=== PATIENT | male | born 1965 | race Caucasian/White ===

== ENCOUNTER 2018-05-21 15:02 | Inpatient (IN) | payer OTHER ==
[2018-05-21 15:54] LABS: Basophils # (A) 0.1 k/uL (0-0.2); Basophils % (A) 1 %; Eosinophils # (A) 0.2 k/uL (0-0.7); Eosinophils % (A) 3 %; HCT 44.6 % (39.0-53.0); HGB 14.6 gm/dL (13.0-17.5); Lymphocytes # (A) 2.2 k/uL (1.0-4.8); Lymphocytes % (A) 26 %; MCH 30.6 pg (25.0-35.0); MCHC 32.8 g/dL (31.0-37.0); MCV 93.3 fL (80.0-100.0); Mean Platelet Volume 7.4; Monocytes # (A) 0.5 k/uL (0-1.0); Monocytes % (A) 5 %; Neutrophils # (A) 5.5 k/uL (1.3-7.7); Neutrophils % (A) 64 %; Platelet Count 272 k/uL (150-450); RBC 4.77 m/uL (4.30-5.90); RDW 13.7 % (11.5-15.5); WBC 8.7 k/uL (3.8-10.6)
[2018-05-21 16:02] LABS: Partial Thromboplastin Time 25.9 sec (22.0-30.0); Prothrombin Time 10.1 sec (9.0-12.0)
[2018-05-21 16:08] LABS: Albumin 3.9 g/dL (3.5-5.0); Calcium 9.1 mg/dL (8.4-10.2); Potassium 4.5 mmol/L (3.5-5.1); Total Bilirubin 0.7 mg/dL (0.2-1.3); Total Protein 6.5 g/dL (6.3-8.2)
[2018-05-21 16:20] LABS: Creatine Kinase MB 3.7 ng/mL (0.0-2.4)
[2018-05-21 16:29] LABS: Troponin I 0.066 ng/mL (0.000-0.034)
--- NOTE | 2018-05-21 17:32 | ED ---
General Adult HPI - General Chief complaint: Shortness of Breath Stated complaint: Dyspnea Time Seen by Provider: 05/21/18 16:48 Source: patient, RN notes reviewed Mode of arrival: ambulatory Limitations: no limitations - History of Present Illness Initial comments: Patient is a pleasant 52-year-old male presenting to the emergency Department with complaints of dyspnea. Patient has had dyspnea for several months now. Patient states dyspnea does worsen with exertion. Patient is unclear if dyspnea increased swelling down. Patient states last couple of days he has had some very mild chest discomfort. No discomfort at this time. Patient did have some this morning. Patient did go to the clinic at work and was advised to come to the emergency department. Patient does have known history of irregular EKG. No other history of known cardiac disease. No associated nausea vomiting or diaphoresis. No radiation of discomfort. - Related Data Home Medications Medication Instructions Recorded Confirmed Omeprazole Magnesium [PriLOSEC OTC] 20 mg PO DAILY 05/21/18 05/21/18 Allergies Allergy/AdvReac Type Severity Reaction Status Date / Time No Known Allergies Allergy Verified 05/21/18 18:23 Review of Systems ROS Statement: Those systems with pertinent positive or pertinent negative responses have been documented in the HPI. ROS Other: All systems not noted in ROS Statement are negative. Constitutional: Denies: fever Eyes: Denies: eye pain ENT: Denies: ear pain Respiratory: Reports: dyspnea. Denies: cough Cardiovascular: Reports: chest pain Endocrine: Denies: fatigue Gastrointestinal: Denies: abdominal pain Genitourinary: Denies: dysuria Musculoskeletal: Denies: back pain Skin: Denies: rash Neurological: Denies: weakness Past Medical History Past Medical History: No Reported History History of Any Multi-Drug Resistant Organisms: None Reported Past Surgical History: No Surgical Hx Reported Past Psychological History: No Psychological Hx Reported Smoking Status: Never smoker Past Alcohol Use History: Occasional Past Drug Use History: None Reported General Exam Limitations: no limitations General appearance: alert, in no apparent distress Head exam: Present: atraumatic Eye exam: Present: normal appearance, PERRL ENT exam: Present: normal oropharynx Neck exam: Present: normal inspection Respiratory exam: Present: normal lung sounds bilaterally Cardiovascular Exam: Present: irregular rhythm Expanded Peripheral pulses: 2+: Radial (R), Radial (L), Posterior Tibialis (R), Posterior Tibialis (L) GI/Abdominal exam: Present: soft. Absent: tenderness Extremities exam: Present: normal inspection. Absent: pedal edema, calf tenderness Neurological exam: Present: alert Psychiatric exam: Present: normal affect, normal mood Skin exam: Present: normal color Course Vital Signs 05/21/18 05/21/18 15:04 17:33 Temperature 98.0 F Pulse Rate 48 L 71 Respiratory 20 18 Rate Blood Pressure 148/84 131/66 O2 Sat by Pulse 98 98 Oximetry EKG Findings - EKG Comments: EKG Findings:: Bigeminy pattern: Sinus rhythm with frequent PVCs with a rate of 78. HI 152. QRS 96. QT 416. QTc 474. Normal axis. Normal QRS. No acute ST change. Medical Decision Making - Medical Decision Making Patient was updated on results and plan. Dr. Amado has been paged for admission. - Lab Data Result diagrams: 05/21/18 15:41 05/21/18 15:41 Lab Results 05/21/18 05/21/18 05/21/18 Range/Units 15:41 15:41 15:41 WBC 8.7 (3.8-10.6) k/uL RBC 4.77 (4.30-5.90) m/uL Hgb 14.6 (13.0-17.5) gm/dL Hct 44.6 (39.0-53.0) % MCV 93.3 (80.0-100.0) fL MCH 30.6 (25.0-35.0) pg MCHC 32.8 (31.0-37.0) g/dL RDW 13.7 (11.5-15.5) % Plt Count 272 (150-450) k/uL Neutrophils % 64 % Lymphocytes % 26 % Monocytes % 5 % Eosinophils % 3 % Basophils % 1 % Neutrophils # 5.5 (1.3-7.7) k/uL Lymphocytes # 2.2 (1.0-4.8) k/uL Monocytes # 0.5 (0-1.0) k/uL Eosinophils # 0.2 (0-0.7) k/uL Basophils # 0.1 (0-0.2) k/uL PT (9.0-12.0) sec INR (<1.2) APTT (22.0-30.0) sec Sodium 139 (137-145) mmol/L Potassium 4.5 (3.5-5.1) mmol/L Chloride 109 H (98-107) mmol/L Carbon Dioxide 21 L (22-30) mmol/L Anion Gap 9 mmol/L BUN 18 (9-20) mg/dL Creatinine 1.12 (0.66-1.25) mg/dL Est GFR (CKD-EPI)AfAm 87 (>60 ml/min/1.73 sqM) Est GFR (CKD-EPI)NonAf 75 (>60 ml/min/1.73 sqM) Glucose 132 H (74-99) mg/dL Calcium 9.1 (8.4-10.2) mg/dL Total Bilirubin 0.7 (0.2-1.3) mg/dL AST 29 (17-59) U/L ALT 31 (21-72) U/L Alkaline Phosphatase 64 (38-126) U/L Total Creatine Kinase 267 H (55-170) U/L CK-MB (CK-2) 3.7 H (0.0-2.4) ng/mL CK-MB (CK-2) Rel Index 1.4 Troponin I 0.066 H* (0.000-0.034) ng/mL Total Protein 6.5 (6.3-8.2) g/dL Albumin 3.9 (3.5-5.0) g/dL 05/21/18 Range/Units 15:41 WBC (3.8-10.6) k/uL RBC (4.30-5.90) m/uL Hgb (13.0-17.5) gm/dL Hct (39.0-53.0) % MCV (80.0-100.0) fL MCH (25.0-35.0) pg MCHC (31.0-37.0) g/dL RDW (11.5-15.5) % Plt Count (150-450) k/uL Neutrophils % % Lymphocytes % % Monocytes % % Eosinophils % % Basophils % % Neutrophils # (1.3-7.7) k/uL Lymphocytes # (1.0-4.8) k/uL Monocytes # (0-1.0) k/uL Eosinophils # (0-0.7) k/uL Basophils # (0-0.2) k/uL PT 10.1 (9.0-12.0) sec INR 1.0 (<1.2) APTT 25.9 (22.0-30.0) sec Sodium (137-145) mmol/L Potassium (3.5-5.1) mmol/L Chloride (98-107) mmol/L Carbon Dioxide (22-30) mmol/L Anion Gap mmol/L BUN (9-20) mg/dL Creatinine (0.66-1.25) mg/dL Est GFR (CKD-EPI)AfAm (>60 ml/min/1.73 sqM) Est GFR (CKD-EPI)NonAf (>60 ml/min/1.73 sqM) Glucose (74-99) mg/dL Calcium (8.4-10.2) mg/dL Total Bilirubin (0.2-1.3) mg/dL AST (17-59) U/L ALT (21-72) U/L Alkaline Phosphatase (38-126) U/L Total Creatine Kinase (55-170) U/L CK-MB (CK-2) (0.0-2.4) ng/mL CK-MB (CK-2) Rel Index Troponin I (0.000-0.034) ng/mL Total Protein (6.3-8.2) g/dL Albumin (3.5-5.0) g/dL - Radiology Data Radiology results: image reviewed Critical Care Time Critical Care Time: Yes Total Critical Care Time: 31 Disposition Clinical Impression: Unstable angina Disposition: ADMITTED IP TO THIS [facility] Is patient prescribed a controlled substance at d/c from ED?: No Referrals: Fausto Rhodes III, MD [Primary Care Provider] - 1-2 days Decision Time: 18:30
[2018-05-21] MEDS ORDERED: NITROGLYCERIN SL TABS 0.4 MG TAB SUBLINGUAL PRN (18:30)
[2018-05-21] MEDS ORDERED: HEPARIN SODIUM,PORCINE 5,000 UNIT/ML 1 ML VIAL IV PRN (18:30)
[2018-05-21] MEDS ORDERED: HEPARIN SODIUM,PORCINE 5,000 UNIT/ML 1 ML VIAL IV ONE (18:30)
[2018-05-21] MEDS: HEPARIN SOD,PORK IN 0.45% NACL 25,000 UNIT in 0.45% NACL 1 500ML.BAG IV SCH (19:04)
--- NOTE | 2018-05-21 19:06 | XR ---
EXAMINATION: XR chest 1V portable DATE AND TIME: 05/21/2018 6:17 PM CLINICAL INDICATION: pain TECHNIQUE: AP upright portable COMPARISON: None. FINDINGS: The lungs are clear. The pleural spaces are negative. The cardiac silhouette is not enlarged. The remainder of the mediastinal silhouette is unremarkable. The skeletal structures and soft tissues are negative for acute findings. IMPRESSION: NO ACUTE PROCESS.
[2018-05-21] MEDS ORDERED: IPRATROPIUM-ALBUTEROL 3 ML NEB INHALATION PRN (20:56)
[2018-05-21] MEDS ORDERED: ALPRAZolam 0.25 MG TAB PO PRN (20:57)
[2018-05-21] MEDS ORDERED: ACETAMINOPHEN TAB 500 MG TAB PO PRN (20:57)
[2018-05-21] MEDS ORDERED: TEMAZEPAM 15 MG CAP PO PRN (20:57)
[2018-05-21 21:45] LABS: Troponin I 0.08 ng/mL (0.000-0.034)
--- NOTE | 2018-05-21 22:03 | HP ---
HISTORY AND PHYSICAL DATE OF SERVICE: 05/21/2018 CHIEF COMPLAINT: Shortness of breath. HISTORY OF PRESENT ILLNESS: This is 52-year-old gentleman with a past medical history of no significant medical issues being followed by Dr. Rhodes in the outpatient setting, complaining of shortness of breath over the past several months. The shortness of breath is getting worse with exertion and the patient needs to slow down. Because of increasing difficulty, the patient came to [facility] and was admitted for further evaluation and treatment. The patient also complains of occasional mild chest discomfort which is felt in the anterior part of chest. There is no radiation. No history of headache, loss of consciousness or seizures. Troponin is found to be 0.066 and the patient admitted for further evaluation and treatment. Chest x-ray showed no acute abnormality. EKG showed bigeminy with PVCs. There is no history of fever, rigors or chills. PAST MEDICAL HISTORY: Past medical history, there is no significant cardiorespiratory illness. No medical illness. MEDICATIONS: Omeprazole. ALLERGIES: None. FAMILY HISTORY: History of heart disease in grandfather. SOCIAL HISTORY: Remote history of smoking. Smoked about 2 packs of cigarettes for 17 years previously according to him. Occasional alcohol intake. REVIEW OF SYSTEMS: ENT: No diminished hearing or vision. CARDIOVASCULAR: As mentioned earlier. RESPIRATORY: As mentioned earlier. GI: No nausea or vomiting. no dysuria or hematuria. Nervous system: No numbness or weakness. Allergy/Immunology: No asthma or hayfever. Musculoskeletal as mentioned earlier. Hematology/Oncology: No history of anemia. Endocrine: No history of diabetes or hypothyroidism. CONSTITUTIONAL: As mentioned earlier. DERMATOLOGY: Negative. Rheumatology: Negative. Psychiatric: Negative. PHYSICAL EXAMINATION: The patient is alert and oriented x3. The pulse is 71, blood pressure 131/66, respiration 18, temperature 98 degrees, pulse ox 98% on 2 L. HEENT is conjunctivae normal. Oral mucosa moist. Neck is no jugular venous distention. No carotid bruit. No lymph node enlargement. Cardiac: S1, S2. Respiratory: Breath sounds diminished in the bases. A few rhonchi. No crackles. ABDOMEN: Soft, nontender. No mass palpable. Legs no edema and no swelling. NERVOUS SYSTEM: Higher functions as mentioned earlier. Moves all four extremities. No focal motor or sensory deficits. Lymphatics: No lymph nodes palpable in the neck, axillae or groin. SKIN: No ulcers, rashes or bleeding. LAB DATA: CBC within normal limits and CO2 is 21, glucose 132, creatinine kinase 267. Troponin 0.066. ASSESSMENT: 1. Shortness of breath for evaluation, rule out anginal equivalent. 2. Troponin 0.066, rule out acute non ST segment elevation myocardial infarction. 3. Rule out chronic obstructive pulmonary disease acute exacerbation. 4. Increased creatinine kinase. 5. Increased random blood sugar. 6. Remote history of nicotine dependence. RECOMMENDATIONS AND DISCUSSION: In this 52-year-old gentleman who presented with multiple complex medical issues, we will monitor the patient closely. Continue the current medications, management and symptomatic treatment. Otherwise, I recommend empiric bronchodilators. Cardiology and pulmonology evaluation. 2D echo with Doppler. Repeat D-dimer, if it is positive, CT angiogram. Otherwise 2D echocardiogram. Repeat cardiac enzymes. Prognosis guarded because of multiple complex medical issues. Further recommendations to follow. A copy of dictation being forwarded to Dr. Rhodes who is the primary physician. MMODL / IJN: [id number] /
--- NOTE | 2018-05-21 22:34 | CT ---
EXAMINATION TYPE: CT chest angio for PE DATE OF EXAM: 05/21/2018 COMPARISON: None HISTORY: unstable angina CT DLP: 544 mGycm Automated exposure control for dose reduction was used. CONTRAST: CT Chest for pulmonary embolism performed with with IV Contrast, patient injected with 85mL mL of Iso ammon 370. FINDINGS: There are 3-D post processed images. There is minimal pulmonary emphysema. There is no evidence of a pulmonary mass. Lungs are clear of co nsolidation. There is minimal reticular density at the right posterior lung base. Heart size is normal. There is no pericardial effusion. There are a few paratracheal and bronchial ly mph nodes that measure up to 1 cm. Thoracic aorta shows normal size and contour. There is no evidence of aneurysm. There is no evidence of dissection. There is normal contrast opacification of the pulmonary arteries. There are no filling defects. The b marisol thorax appears intact. IMPRESSION: No evidence of pulmonary embolism. Minimal pulmonary emphysema.
[2018-05-21] MEDS: NITROGLYCERIN OINT 1 INCH/GM PACKET TOPICAL SCH (23:17)
[2018-05-21] MEDS: METOPROLOL TARTRATE 12.5 MG TAB PO SCH (23:17)
[2018-05-22 04:21] LABS: Basophils # (A) 0.1 k/uL (0-0.2); Basophils % (A) 1 %; Eosinophils # (A) 0.3 k/uL (0-0.7); Eosinophils % (A) 4 %; HCT 44.5 % (39.0-53.0); HGB 14.7 gm/dL (13.0-17.5); Lymphocytes # (A) 2.3 k/uL (1.0-4.8); Lymphocytes % (A) 30 %; MCH 30.3 pg (25.0-35.0); MCV 91.7 fL (80.0-100.0); Mean Platelet Volume 7.7; Monocytes # (A) 0.4 k/uL (0-1.0); Monocytes % (A) 6 %; Neutrophils # (A) 4.5 k/uL (1.3-7.7); Neutrophils % (A) 59 %; Platelet Count 245 k/uL (150-450); RBC 4.86 m/uL (4.30-5.90); RDW 13.4 % (11.5-15.5); WBC 7.7 k/uL (3.8-10.6)
[2018-05-22 04:30] LABS: Anion Gap 5 mmol/L; Blood Urea Nitrogen 17 mg/dL (9-20); Calcium 8.8 mg/dL (8.4-10.2); Carbon Dioxide 22 mmol/L (22-30); Chloride 108 mmol/L (98-107); Cholesterol 261 mg/dL (<200); Glucose 107 mg/dL (74-99); HDL Cholesterol 60 mg/dL (40-60); LDL Cholesterol,Calculated 170 mg/dL (0-99); Potassium 4.7 mmol/L (3.5-5.1); Sodium 135 mmol/L (137-145); Triglycerides 153 mg/dL (<150)
[2018-05-22 04:54] LABS: Creatine Kinase MB 2.6 ng/mL (0.0-2.4)
[2018-05-22 04:55] LABS: Troponin I 0.065 ng/mL (0.000-0.034)
[2018-05-22] MEDS: NITROGLYCERIN OINT 1 INCH/GM PACKET TOPICAL SCH ×3 (06:14→17:26)
[2018-05-22] MEDS: PANTOPRAZOLE 40 MG TABLET PO SCH (06:16)
--- NOTE | 2018-05-22 08:12 | P.CRDCN ---
History of Present Illness Consult date: 05/22/18 Requesting physician: Shaista Amado Consult reason: non-Q-wave [place] Chief complaint: Shortness of breath History of present illness: This is a pleasant 52-year-old gentleman with history of hypertension , untreated, hyperlipidemia untreated, no diabetes, nonsmoker, he thinks that his grandfather at an early age with a heart attack. Rarely drinks alcohol. For the past several weeks the patient has been experiencing symptoms of shortness of breath, according to the patient every morning when he wakes up he is very short of breath sometimes he wakes up at 2 or 3:00 in the morning and can hardly breathe. He does state that the symptoms worsen when he exerts himself. He denies any form of chest discomfort or discomfort in his upper back or arms. His EKG on arrival here showed a normal sinus rhythm with bigeminal PVCs, EKG performed this morning shows a normal sinus rhythm with frequent PVCs. No acute changes noted. Chest x-ray does not reveal any acute process. CTA of the chest was performed which did not reveal any evidence of a pulmonary embolism, mild emphysema. White blood cell count is normal, hemoglobin 14.7, platelet count 245, d-dimer 0.81. Sodium 135, potassium 4.7, BUN 17, creatinine 1.0. Troponins 0.06, 0.08, 0.06. Cholesterol 261, triglycerides 153, LDL 170, HDL 60. At the time of my examination this morning , patient still feels mildly short of breath. Denies any chest discomfort. Past Medical History Past Medical History: No Reported History History of Any Multi-Drug Resistant Organisms: None Reported Past Surgical History: No Surgical Hx Reported Past Psychological History: No Psychological Hx Reported Smoking Status: Former smoker Past Alcohol Use History: Occasional Past Drug Use History: None Reported Medications and Allergies Home Medications Medication Instructions Recorded Confirmed Type Omeprazole Magnesium [PriLOSEC OTC] 20 mg PO DAILY 05/21/18 05/21/18 History Allergies Allergy/AdvReac Type Severity Reaction Status Date / Time No Known Allergies Allergy Verified 05/21/18 18:23 Physical Exam Vitals: Vital Signs Temp Pulse Pulse Resp BP BP Pulse Ox 05/22/18 04:00 98.5 F 69 18 126/70 94 L 05/22/18 00:00 98.3 F 73 18 133/64 95 05/21/18 19:15 98.0 F 75 18 128/60 95 05/21/18 19:00 71 18 138/71 98 05/21/18 18:30 97 05/21/18 17:33 71 18 131/66 98 05/21/18 15:04 98.0 F 48 L 20 148/84 98 Intake and Output 05/21/18 05/22/18 05/22/18 22:59 06:59 14:59 Intake Total 192.57 Balance 192.57 Intake: Intake, IV Titration 192.57 Amount Heparin Sod,Pork in 0.45% 192.57 NaCl 25,000 unit In 0.45 % NaCl 1 500ml.bag @ 11.6 UNITS/KG/HR 19.99 mls/hr IV .Q24H [facility] Rx#: [id number] Other: # Voids 1 2 Weight 86 kg 84.3 kg PHYSICAL EXAMINATION: GENERAL: 52-year-old gentleman in no acute distress at the time of my examination HEENT: Head is atraumatic, normocephalic. Pupils equal, round. Sclera anicteric. Conjunctiva are clear. Mucous membranes of the mouth are moist. Neck is supple. There is elevated jugular venous pressure. no carotid bruit is heard. HEART EXAMINATION: [Elizalde S1, S2 normal. No murmur or gallop heard.] CHEST EXAMINATION:[ Lungs reveal coarse wheezing throughout ABDOMEN: Soft, nontender. Bowel sounds are heard. No organomegaly noted. EXTREMITIES: 2+ peripheral pulses with no evidence of peripheral edema and no calf tenderness noted. NEUROLOGIC patient is awake, alert and oriented X3. . Results 05/22/18 03:51 05/22/18 03:51 Cardiac Enzymes 05/21/18 05/21/18 05/21/18 Range/Units 15:41 15:41 20:55 AST 29 (17-59) U/L CK-MB (CK-2) 3.7 H 3.0 H (0.0-2.4) ng/mL Troponin I 0.066 H* 0.080 H* (0.000-0.034) ng/mL 05/22/18 Range/Units 03:51 AST (17-59) U/L CK-MB (CK-2) 2.6 H (0.0-2.4) ng/mL Troponin I 0.065 H* (0.000-0.034) ng/mL Coagulation 05/21/18 05/22/18 05/22/18 Range/Units 15:41 03:51 06:21 PT 10.1 (9.0-12.0) sec APTT 25.9 39.2 H 43.4 H (22.0-30.0) sec Lipids 05/22/18 Range/Units 03:51 Triglycerides 153 H (<150) mg/dL Cholesterol 261 H (<200) mg/dL HDL Cholesterol 60 (40-60) mg/dL CBC 05/21/18 05/22/18 Range/Units 15:41 03:51 WBC 8.7 7.7 (3.8-10.6) k/uL RBC 4.77 4.86 (4.30-5.90) m/uL Hgb 14.6 14.7 (13.0-17.5) gm/dL Hct 44.6 44.5 (39.0-53.0) % Plt Count 272 245 (150-450) k/uL Comprehensive Metabolic Panel 05/21/18 05/22/18 Range/Units 15:41 03:51 Sodium 139 135 L (137-145) mmol/L Potassium 4.5 4.7 (3.5-5.1) mmol/L Chloride 109 H 108 H (98-107) mmol/L Carbon Dioxide 21 L 22 (22-30) mmol/L BUN 18 17 (9-20) mg/dL Creatinine 1.12 1.06 (0.66-1.25) mg/dL Glucose 132 H 107 H (74-99) mg/dL Calcium 9.1 8.8 (8.4-10.2) mg/dL AST 29 (17-59) U/L ALT 31 (21-72) U/L Alkaline Phosphatase 64 (38-126) U/L Total Protein 6.5 (6.3-8.2) g/dL Albumin 3.9 (3.5-5.0) g/dL Current Medications Generic Name Dose Route Start Last Admin Trade Name Freq PRN Reason Stop Dose Admin Acetaminophen 500 mg 05/21/18 20:57 Tylenol Tab PO Q6HR PRN Fever and/ or Pain Albuterol/Ipratropium 3 ml 05/22/18 08:00 Duoneb 0.5 Mg-3 Mg/3 Ml Soln INHALATION RT-TID [facility] Albuterol/Ipratropium 3 ml 05/21/18 20:56 Duoneb 0.5 Mg-3 Mg/3 Ml Soln INHALATION RT-TID PRN Shortness Of Breath Or Wheezing Alprazolam 0.25 mg 05/21/18 20:57 Xanax PO TID PRN Anxiety Aspirin 325 mg 05/22/18 09:00 Aspirin PO DAILY [facility] Atorvastatin Calcium 80 mg 05/22/18 09:00 Lipitor PO DAILY [facility] Heparin Sodium (Porcine) 0 unit 05/21/18 18:30 Heparin IV Q6HR PRN Low PTT Protocol Heparin Sodium/Sodium Chloride 500 mls @ 19.99 mls/hr 05/21/18 18:30 04:42 25,000 unit/ Sodium Chloride IV 15 units/kg/hr .Q24H [facility] 25.85 mls/hr Titration Protocol 11.6 UNITS/KG/HR Metoprolol Tartrate 12.5 mg 05/21/18 21:00 05/21/18 23:17 Lopressor PO 12.5 mg BID [facility] Administration Nitroglycerin 1 inch 05/22/18 00:00 05/22/18 06:14 Nitro-Bid Oint TOPICAL Not Given Q6HR [facility] Nitroglycerin 0.4 mg 05/21/18 18:30 Nitrostat SUBLINGUAL Q5M PRN Chest Pain Pantoprazole Sodium 40 mg 05/22/18 07:30 05/22/18 06:16 Protonix PO 40 mg AC-BRKFST [facility] Administration Sodium Chloride 10 ml 05/21/18 21:00 05/21/18 23:17 Saline Flush IV 10 ml BID [facility] Administration Temazepam 15 mg 05/21/18 20:57 Restoril PO HS PRN Insomnia Intake and Output 05/21/18 05/22/18 05/22/18 22:59 06:59 14:59 Intake Total 192.57 Balance 192.57 Intake: Intake, IV Titration 192.57 Amount Heparin Sod,Pork in 0.45% 192.57 NaCl 25,000 unit In 0.45 % NaCl 1 500ml.bag @ 11.6 UNITS/KG/HR 19.99 mls/hr IV .Q24H [facility] Rx#: [id number] Other: # Voids 1 2 Weight 86 kg 84.3 kg 05/22/18 03:51 05/22/18 03:51 EKG Interpretations (text) EKG shows a normal sinus rhythm with frequent and bigeminal PVCs Assessment and Plan Plan: Assessment and plan #1 Symptoms of shortness of breath over several weeks' duration, PND and orthopnea, exertional shortness of breath. CT of the chest negative for pulmonary embolism. Cardiac enzymes are abnormal, troponins 0.06, 0.08, 0.06. Suggesting possible non-Q-wave [place]. Elevated jugular venous pressure, possible congestive heart failure. We'll obtain a BNP level. #2 hypertension untreated #3 hyperlipidemia untreated #4 family history of premature coronary artery disease in his grandfather Plan We will obtain an echocardiogram with Doppler study as well as a BNP level. We will start the patient on Lipitor 80 mg now and daily. Continue aspirin and IV heparin. Patient has also been initiated on low-dose of metoprolol and Nitropaste which we will continue at this time. We will give the patient one time dose of IV Lasix. Patient will need to undergo cardiac catheterization, the risks and the benefits were explained to the patient in detail and he is willing to proceed. Further recommendations to follow. DNP note has been reviewed, I agree with a documented findings and plan of care. Patient was seen and examined.
[2018-05-22] MEDS: IPRATROPIUM-ALBUTEROL 3 ML NEB INHALATION SCH ×3 (08:42→19:35)
[2018-05-22] MEDS ORDERED: ATORVASTATIN 80 MG TAB PO SCH (09:00)
[2018-05-22] MEDS ORDERED: ASPIRIN 325 MG TAB PO SCH (09:00)
[2018-05-22] MEDS ORDERED: NON-FORMULARY DRUG (Omeprazole Magnesium [Prilosec Otc] 20 MG) PO SCH (09:00)
[2018-05-22] MEDS: METOPROLOL TARTRATE 12.5 MG TAB PO SCH ×2 (09:07→20:53)
[2018-05-22] MEDS: FUROSEMIDE 10 MG/ML 4 ML VIAL IV SCH ×2 (09:12→20:53)
[2018-05-22] MEDS ORDERED: SODIUM CHLORIDE 0.9% 1,000 ML in EMPTY BAG 1 BAG IV ONE (09:57)
[2018-05-22] MEDS ORDERED: ALPRAZolam 0.5 MG TAB PO PRN (09:57)
[2018-05-22] MEDS ORDERED: NITROGLYCERIN SL TABS 0.4 MG TAB SUBLINGUAL PRN (09:57)
[2018-05-22] MEDS ORDERED: ALPRAZolam 0.25 MG TAB PO PRN (09:57)
--- NOTE | 2018-05-22 09:59 | ECHOF ---
Referral Reason:chf MEASUREMENTS -------- HEIGHT: 172.7 cm WEIGHT: 83.9 kg BP: 126/70 RVIDd: 3.7 cm (< 3.3) IVSd: 1.4 cm (0.6 - 1.1) LVIDd: 4.8 cm (3.9 - 5.3) LVPWd: 1.3 cm (0.6 - 1.1) IVSs: 1.2 cm LVIDs: 4.6 cm LVPWs: 1.8 cm LA Diam: 4.3 cm (2.7 - 3.8) LAESV Index (A-L): 42.66 ml/m Ao Diam: 3.5 cm (2.0 - 3.7) AV Cusp: 2.0 cm (1.5 - 2.6) MV EXCURSION: 11.106 mm (> 18.000) MV EF SLOPE: 58 mm/s (70 - 150) EPSS: 1.9 cm MV E Frankie: 1.33 m/s MV DecT: 135 ms MV A Frankie: 0.83 m/s MV E/A Ratio: 1.60 RAP: 5.00 mmHg RVSP: 17.16 mmHg FINDINGS -------- Sinus rhythm with extra systolic beats. This was a technically adequate study. The left ventricular size is normal. There is moderate concentric left ventricular hypertrophy. O verall left ventricular systolic function is severely impaired with, an EF between 20 - 25 %. The right ventricle is mildly enlarged. LA is severely dilated >40 ml/m2 The right atrium is normal in size. There is mild aortic valve sclerosis. There is trace to mild mitral regurgitation. Mild tricuspid regurgitation present. Right ventricular systolic pressure is normal at < 35 mmHg. Trace/mild (physiologic) pulmonic regurgitation. The aortic root size is normal. Normal inferior vena cava with normal inspiratory collapse consistent with estimated right atrial pre ssure of 5 mmHg. There is no pericardial effusion. CONCLUSIONS -------- 1. Sinus rhythm with extra systolic beats. 2. This was a technically adequate study. 3. The left ventricular size is normal. 4. There is moderate concentric left ventricular hypertrophy. 5. Overall left ventricular systolic function is severely impaired with, an EF between 20 - 25 %. 6. The right ventricle is mildly enlarged. 7. LA is severely dilated >40 ml/m2 8. The right atrium is normal in size. 9. There is mild aortic valve sclerosis. 10. There is trace to mild mitral regurgitation. 11. Mild tricuspid regurgitation present. 12. Right ventricular systolic pressure is normal at < 35 mmHg. 13. Trace/mild (physiologic) pulmonic regurgitation. 14. The aortic root size is normal. 15. Normal inferior vena cava with normal inspiratory collapse consistent with estimated right atrial pressure of 5 mmHg. 16. There is no pericardial effusion. [employer]: Shiloh Snider RDCS
--- NOTE | 2018-05-22 10:52 | P.PN ---
Subjective -52 year-old admitted for shortness of breath and pulmonary edema although found to have ejection fraction of around 20%, patient has minimally elevated troponins and undergo cardiac catheterization tomorrow patient was started on IV Lasix. Ischemic Cardio- myopathy need to be ruled out with elevated troponin and on going on and off exertional chest pain. Constitutional: Denied any fatigue denied any fever. Cardio vascular: denied any palpitations Gastrointestinal denied any nausea vomiting Pulmonary: As mentioned in HPI Neurologic denied any new focal deficits Objective - Vital Signs Vital signs: Vital Signs Temp 98.4 F 05/22/18 08:00 Pulse 38 L 05/22/18 08:56 Resp 18 05/22/18 08:00 BP 129/61 05/22/18 08:00 Pulse Ox 97 05/22/18 08:42 Intake & Output 05/21/18 05/22/18 05/22/18 18:59 06:59 18:59 Intake Total 192.57 118 Balance 192.57 118 Weight 86.183 kg 84.3 kg Intake: Intake, IV Titration 192.57 Amount Heparin Sod,Pork in 0.45% 192.57 NaCl 25,000 unit In 0.45 % NaCl 1 500ml.bag @ 11.6 UNITS/KG/HR 19.99 mls/hr IV .Q24H [facility] Rx#: [id number] Oral 118 Other: # Voids 2 - Exam PHYSICAL EXAMINATION: GENERAL: The patient is alert and oriented x3, not in any acute distress. Well developed, well nourished. HEENT: Pupils are round and equally reacting to light. EOMI. No scleral icterus. No conjunctival pallor. Normocephalic, atraumatic. No pharyngeal erythema. No thyromegaly. CARDIOVASCULAR: S1 and S2 present. No murmurs, rubs, or gallops. Patient does have elevated JVD PULMONARY: Chest is clear to auscultation, no wheezing or crackles. ABDOMEN: Soft, nontender, nondistended, normoactive bowel sounds. No palpable organomegaly. MUSCULOSKELETAL: No joint swelling or deformity. EXTREMITIES: No cyanosis, clubbing, or no significant pedal edema may be minimal pitting pedal edema NEUROLOGICAL: Gross neurological examination did not reveal any focal deficits. SKIN: No rashes. - Labs CBC & Chem 7: 05/22/18 03:51 05/22/18 03:51 Labs: Abnormal Lab Results - Last 24 Hours (Table) 05/21/18 05/21/18 05/21/18 Range/Units 15:41 15:41 20:55 APTT (22.0-30.0) sec D-Dimer (<0.60) mg/L FEU Sodium (137-145) mmol/L Chloride 109 H (98-107) mmol/L Carbon Dioxide 21 L (22-30) mmol/L Glucose 132 H (74-99) mg/dL Total Creatine Kinase 267 H 214 H (55-170) U/L CK-MB (CK-2) 3.7 H 3.0 H (0.0-2.4) ng/mL Troponin I 0.066 H* 0.080 H* (0.000-0.034) ng/mL Triglycerides (<150) mg/dL Cholesterol (<200) mg/dL LDL Cholesterol, Calc (0-99) mg/dL 05/21/18 05/22/18 05/22/18 Range/Units 20:55 03:51 03:51 APTT 39.2 H (22.0-30.0) sec D-Dimer 0.81 H (<0.60) mg/L FEU Sodium (137-145) mmol/L Chloride (98-107) mmol/L Carbon Dioxide (22-30) mmol/L Glucose (74-99) mg/dL Total Creatine Kinase 191 H (55-170) U/L CK-MB (CK-2) 2.6 H (0.0-2.4) ng/mL Troponin I 0.065 H* (0.000-0.034) ng/mL Triglycerides (<150) mg/dL Cholesterol (<200) mg/dL LDL Cholesterol, Calc (0-99) mg/dL 05/22/18 05/22/18 Range/Units 03:51 06:21 APTT 43.4 H (22.0-30.0) sec D-Dimer (<0.60) mg/L FEU Sodium 135 L (137-145) mmol/L Chloride 108 H (98-107) mmol/L Carbon Dioxide (22-30) mmol/L Glucose 107 H (74-99) mg/dL Total Creatine Kinase (55-170) U/L CK-MB (CK-2) (0.0-2.4) ng/mL Troponin I (0.000-0.034) ng/mL Triglycerides 153 H (<150) mg/dL Cholesterol 261 H (<200) mg/dL LDL Cholesterol, Calc 170 H (0-99) mg/dL Assessment and Plan Plan: Congestive heart failure systolic dysfunction and showed acute or chronic ischemic cardiomyopathy need to be ruled out patient was started on Lasix. Repeat basic metabolic profile tomorrow -Possible non-ST elevation myocardial infarction patient on IV heparin undergo cardiac catheterization tomorrow -Hypertension -Hyperlipidemia -Rule out pulmonary embolism
--- NOTE | 2018-05-22 11:29 | P.CRDCN ---
History of Present Illness History of present illness: Patient interviewed and examined Presenting with shortness of breath on exertion for several months, gradually worsening, likely orthopnea/PND short of breath with average activities 2-D echo shows reduced LV systolic function left ventricular systolic function. 5% with severely dilated left atrium normal RVSP increased LV mass Twelve-lead ECG shows ventricular bigeminy. PVCs originating from the LV lateral base CT of the chest did not show any pulmonary embolism Borderline troponins LDL 170 mg/dL, HDL 60 Impression Acute and chronic heart failure, systolic dysfunction Ventricular bigeminy Cardiomyopathy, etiology unknown at this time Suggest Treat heart failure with IV Lasix, start metoprolol and later switched to Toprol succinate, spironolactone and is inhibitors/G dizziness after blockers Coronary angiography to evaluate cardiomyopathy Maximize heart failure medications See full dictation by nurse practitioner Past Medical History Past Medical History: No Reported History History of Any Multi-Drug Resistant Organisms: None Reported Past Surgical History: No Surgical Hx Reported Past Psychological History: No Psychological Hx Reported Smoking Status: Former smoker Past Alcohol Use History: Occasional Past Drug Use History: None Reported Medications and Allergies Home Medications Medication Instructions Recorded Confirmed Type Omeprazole Magnesium [PriLOSEC OTC] 20 mg PO DAILY 05/21/18 05/21/18 History Allergies Allergy/AdvReac Type Severity Reaction Status Date / Time No Known Allergies Allergy Verified 05/21/18 18:23 Physical Exam Vitals: Vital Signs Temp Pulse Pulse Resp BP BP Pulse Ox 05/22/18 08:56 38 L 05/22/18 08:42 38 L 97 05/22/18 08:00 98.4 F 77 18 129/61 94 L 05/22/18 04:00 98.5 F 69 18 126/70 94 L 05/22/18 00:00 98.3 F 73 18 133/64 95 05/21/18 19:15 98.0 F 75 18 128/60 95 05/21/18 19:00 71 18 138/71 98 05/21/18 18:30 97 05/21/18 17:33 71 18 131/66 98 05/21/18 15:04 98.0 F 48 L 20 148/84 98 Intake and Output 05/21/18 05/22/18 05/22/18 22:59 06:59 14:59 Intake Total 192.57 118 Balance 192.57 118 Intake: Intake, IV Titration 192.57 Amount Heparin Sod,Pork in 0.45% 192.57 NaCl 25,000 unit In 0.45 % NaCl 1 500ml.bag @ 11.6 UNITS/KG/HR 19.99 mls/hr IV .Q24H [facility] Rx#: [id number] Oral 118 Other: # Voids 1 2 Weight 86 kg 84.3 kg Results 05/22/18 03:51 05/22/18 03:51 Cardiac Enzymes 05/21/18 05/21/18 05/21/18 Range/Units 15:41 15:41 20:55 AST 29 (17-59) U/L CK-MB (CK-2) 3.7 H 3.0 H (0.0-2.4) ng/mL Troponin I 0.066 H* 0.080 H* (0.000-0.034) ng/mL 05/22/18 Range/Units 03:51 AST (17-59) U/L CK-MB (CK-2) 2.6 H (0.0-2.4) ng/mL Troponin I 0.065 H* (0.000-0.034) ng/mL Coagulation 05/21/18 05/22/18 05/22/18 Range/Units 15:41 03:51 06:21 PT 10.1 (9.0-12.0) sec APTT 25.9 39.2 H 43.4 H (22.0-30.0) sec 05/22/18 Range/Units 10:42 PT (9.0-12.0) sec APTT 48.0 H (22.0-30.0) sec Lipids 05/22/18 Range/Units 03:51 Triglycerides 153 H (<150) mg/dL Cholesterol 261 H (<200) mg/dL HDL Cholesterol 60 (40-60) mg/dL CBC 05/21/18 05/22/18 Range/Units 15:41 03:51 WBC 8.7 7.7 (3.8-10.6) k/uL RBC 4.77 4.86 (4.30-5.90) m/uL Hgb 14.6 14.7 (13.0-17.5) gm/dL Hct 44.6 44.5 (39.0-53.0) % Plt Count 272 245 (150-450) k/uL Comprehensive Metabolic Panel 05/21/18 05/22/18 Range/Units 15:41 03:51 Sodium 139 135 L (137-145) mmol/L Potassium 4.5 4.7 (3.5-5.1) mmol/L Chloride 109 H 108 H (98-107) mmol/L Carbon Dioxide 21 L 22 (22-30) mmol/L BUN 18 17 (9-20) mg/dL Creatinine 1.12 1.06 (0.66-1.25) mg/dL Glucose 132 H 107 H (74-99) mg/dL Calcium 9.1 8.8 (8.4-10.2) mg/dL AST 29 (17-59) U/L ALT 31 (21-72) U/L Alkaline Phosphatase 64 (38-126) U/L Total Protein 6.5 (6.3-8.2) g/dL Albumin 3.9 (3.5-5.0) g/dL Current Medications Generic Name Dose Route Start Last Admin Trade Name Freq PRN Reason Stop Dose Admin Acetaminophen 500 mg 05/21/18 20:57 Tylenol Tab PO Q6HR PRN Fever and/ or Pain Albuterol/Ipratropium 3 ml 05/22/18 08:00 05/22/18 08:42 Duoneb 0.5 Mg-3 Mg/3 Ml Soln INHALATION 3 ml RT-TID [facility] Administration Albuterol/Ipratropium 3 ml 05/21/18 20:56 Duoneb 0.5 Mg-3 Mg/3 Ml Soln INHALATION RT-TID PRN Shortness Of Breath Or Wheezing Alprazolam 0.25 mg 05/22/18 09:57 Xanax PO Q6HR PRN Mild Anxiety Alprazolam 0.5 mg 05/22/18 09:57 Xanax PO Q6HR PRN Moderate Anxiety Aspirin 325 mg 05/23/18 06:00 Aspirin PO 05/23/18 06:01 ONCE ONE Aspirin 325 mg 05/24/18 09:00 Aspirin PO DAILY [facility] Atorvastatin Calcium 80 mg 05/23/18 06:00 Lipitor PO 05/23/18 06:01 ONCE ONE Atorvastatin Calcium 80 mg 05/24/18 09:00 Lipitor PO DAILY [facility] Furosemide 40 mg 05/22/18 09:00 05/22/18 09:12 Lasix IV 40 mg Q12HR [facility] Administration Heparin Sodium (Porcine) 0 unit 05/21/18 18:30 Heparin IV Q6HR PRN Low PTT Protocol Heparin Sodium/Sodium Chloride 500 mls @ 19.99 mls/hr 05/21/18 18:30 04:42 25,000 unit/ Sodium Chloride IV 15 units/kg/hr .Q24H [facility] 25.85 mls/hr Titration Protocol 11.6 UNITS/KG/HR Sodium Chloride 1,000 ml/ IV 1,000 mls @ 84.3 mls/hr 05/22/18 09:57 Solution IV 05/22/18 21:48 .[id number] ONE 1 ML/KG/HR Metoprolol Tartrate 12.5 mg 05/21/18 21:00 05/22/18 09:07 Lopressor PO 12.5 mg BID [facility] Administration Nitroglycerin 1 inch 05/22/18 00:00 05/22/18 06:14 Nitro-Bid Oint TOPICAL Not Given Q6HR [facility] Nitroglycerin 0.4 mg 05/21/18 18:30 Nitrostat SUBLINGUAL Q5M PRN Chest Pain Pantoprazole Sodium 40 mg 05/22/18 07:30 05/22/18 06:16 Protonix PO 40 mg [id number] [facility] Administration Sodium Chloride 10 ml 05/21/18 21:00 05/22/18 09:19 Saline Flush IV 10 ml BID [facility] Administration Temazepam 15 mg 05/21/18 20:57 Restoril PO HS PRN Insomnia Intake and Output 05/21/18 05/22/18 05/22/18 22:59 06:59 14:59 Intake Total 192.57 118 Balance 192.57 118 Intake: Intake, IV Titration 192.57 Amount Heparin Sod,Pork in 0.45% 192.57 NaCl 25,000 unit In 0.45 % NaCl 1 500ml.bag @ 11.6 UNITS/KG/HR 19.99 mls/hr IV .Q24H [facility] Rx#: [id number] Oral 118 Other: # Voids 1 2 Weight 86 kg 84.3 kg 05/22/18 03:51 05/22/18 03:51
--- NOTE | 2018-05-22 12:02 | P.CNPUL ---
History of Present Illness Consult date: 05/22/18 Requesting physician: Shaista Amado Reason for consult: dyspnea Chief complaint: Progressive shortness of breath, left-sided chest discomfort History of present illness: This is a very pleasant 52-year-old gentleman who follows with Dr. Rhodes as his primary care physician. He has a history of hypertension and hyperlipidemia. He states his cholesterol was quite high many years ago and he took medicine for a while and then has since not followed up on that. He has a remote history of smoking. He denies any significant alcohol abuse. No previous pulmonary issues. Lately however for approximately 2 months now he has had progressive shortness of breath. It has been getting worse over the last couple of weeks. He has also been noticing some left-sided chest discomfort which she describes as a cramping sensation. He presented here to the emergency from the same. A CT angiogram was performed and ruled out pulmonary embolism. There is some minimal emphysema noted. An echocardiogram revealed severely impaired left ventricular systolic function with ejection fraction 20-25%. Troponin 0.066, 0.080, 0.065. LDL cholesterol 170. Creatinine 1.06. White count 7.7. Hemoglobin 14.7. He is seen today in consultation on the selective care unit. He is awake and alert in no acute distress. He's comfortable at rest. No current chest discomfort. He is maintaining good O2 saturations in the mid 90s on room air. He's been afebrile. Blood pressure stable. Currently bradycardic. He has been initiated on a heparin drip. He is currently on IV diuretics as well. Review of Systems Constitutional: Reports fatigue, Reports weight gain Eyes: denies blurred vision, denies decreased vision Ears: deny: decreased hearing Ears, nose, mouth and throat: Denies headache, Denies sore throat Cardiovascular: Reports chest pain, Reports decreased exercise tolerance, Reports dyspnea on exertion, Reports shortness of breath Respiratory: Reports dyspnea Gastrointestinal: Denies abdominal pain, Denies diarrhea, Denies nausea, Denies vomiting Genitourinary: Reports as per HPI Musculoskeletal: Denies myalgias Integumentary: Denies pruritus, Denies rash Neurological: Denies numbness, Denies weakness Psychiatric: Denies anxiety, Denies depression Endocrine: Denies fatigue, Denies weight change Hematologic/Lymphatic: Reports as per HPI Allergic/Immunologic: Reports as per HPI Past Medical History Past Medical History: No Reported History, GERD/Reflux, Hyperlipidemia, Hypertension History of Any Multi-Drug Resistant Organisms: None Reported Past Surgical History: No Surgical Hx Reported Past Psychological History: No Psychological Hx Reported Smoking Status: Former smoker Past Alcohol Use History: Occasional Past Drug Use History: None Reported Medications and Allergies Home Medications Medication Instructions Recorded Confirmed Type Omeprazole Magnesium [PriLOSEC OTC] 20 mg PO DAILY 05/21/18 05/21/18 History Allergies Allergy/AdvReac Type Severity Reaction Status Date / Time No Known Allergies Allergy Verified 05/21/18 18:23 Physical Exam Vitals: Vital Signs Temp Pulse Pulse Resp BP BP Pulse Ox 05/22/18 08:56 38 L 05/22/18 08:42 38 L 97 05/22/18 08:00 98.4 F 77 18 129/61 94 L 05/22/18 04:00 98.5 F 69 18 126/70 94 L 05/22/18 00:00 98.3 F 73 18 133/64 95 05/21/18 19:15 98.0 F 75 18 128/60 95 05/21/18 19:00 71 18 138/71 98 05/21/18 18:30 97 05/21/18 17:33 71 18 131/66 98 05/21/18 15:04 98.0 F 48 L 20 148/84 98 Intake and Output 05/21/18 05/22/18 05/22/18 22:59 06:59 14:59 Intake Total 192.57 118 Balance 192.57 118 Intake: Intake, IV Titration 192.57 Amount Heparin Sod,Pork in 0.45% 192.57 NaCl 25,000 unit In 0.45 % NaCl 1 500ml.bag @ 11.6 UNITS/KG/HR 19.99 mls/hr IV .Q24H [facility] Rx#: [id number] Oral 118 Other: # Voids 1 2 Weight 86 kg 84.3 kg - Constitutional General appearance: average body habitus, no acute distress - EENT Eyes: EOMI, PERRLA ENT: hearing grossly normal Ears: bilateral: normal - Neck Neck: normal ROM Carotids: bilateral: upstroke normal Thyroid: bilateral: normal size - Respiratory Respiratory: bilateral: rales - Cardiovascular Rhythm: regular Heart sounds: normal: S1, S2 Abnormal Heart Sounds: systolic murmur - Gastrointestinal General gastrointestinal: normal bowel sounds - Integumentary Integumentary: normal turgor - Neurologic Neurologic: CNII-XII intact - Musculoskeletal Musculoskeletal: gait normal - Psychiatric Psychiatric: A&O x's 3, appropriate affect, intact judgment & insight Results - Laboratory Findings CBC and BMP: 05/22/18 03:51 05/22/18 03:51 PT/INR, D-dimer PT 10.1 sec (9.0-12.0) 05/21/18 15:41 INR 1.0 (<1.2) 05/21/18 15:41 D-Dimer 0.81 mg/L FEU (<0.60) H 05/21/18 20:55 Abnormal lab findings: Abnormal Labs 05/21/18 05/21/18 05/21/18 15:41 15:41 20:55 APTT D-Dimer Sodium Chloride 109 H Carbon Dioxide 21 L Glucose 132 H Total Creatine Kinase 267 H 214 H CK-MB (CK-2) 3.7 H 3.0 H Troponin I 0.066 H* 0.080 H* Triglycerides Cholesterol LDL Cholesterol, Calc 05/21/18 05/22/18 05/22/18 20:55 03:51 03:51 APTT 39.2 H D-Dimer 0.81 H Sodium Chloride Carbon Dioxide Glucose Total Creatine Kinase 191 H CK-MB (CK-2) 2.6 H Troponin I 0.065 H* Triglycerides Cholesterol LDL Cholesterol, Calc 05/22/18 05/22/18 05/22/18 03:51 06:21 10:42 APTT 43.4 H 48.0 H D-Dimer Sodium 135 L Chloride 108 H Carbon Dioxide Glucose 107 H Total Creatine Kinase CK-MB (CK-2) Troponin I Triglycerides 153 H Cholesterol 261 H LDL Cholesterol, Calc 170 H - Diagnostic Findings Chest x-ray: image reviewed CT scan - chest: image reviewed Assessment and Plan Assessment: Impression: #1 Progressive dyspnea secondary to severe cardiomyopathy with ejection fraction 20-25% of unclear etiology. Suspect ischemic in nature. #2 Troponin leak. #3 Hyperlipidemia. #4 Hypertension. #5 Mild pulmonary emphysema and a patient with a remote history of chronic tobacco dependence. #6 Gastroesophageal reflux disease. Plan: The patient was seen and evaluated by Dr. Hernandez. Chest x-ray, CAT scan of the labs were all reviewed. The patient is currently on bronchodilators, IV heparin , IV diuretics. The plan is for cardiac catheterization in the a.m. The patient would benefit from outpatient pulmonary workup including full pulmonary function testing to evaluate the severity of his COPD and make recommendations regarding maintenance medications. We'll continue to follow. I, the cosigning physician, performed a history & physical examination of the patient. Lungs sounds with faint crackles in the bilateral posterior bases. Maintaining good O2 saturations in the 90s on room air. I discussed the assessment and plan of care with my nurse practitioner, Kerry Snow. I attest to the above note as dictated by her. Time with Patient: Greater than 30
[2018-05-22 14:17] LABS: Appearance,Urine Clear (Clear); Bilirubin,Urine Negative (Negative); Blood,Urine Negative (Negative); Color,Urine Light Yellow; Glucose,Urine (UA) Negative (Negative); Ketones,Urine Negative (Negative); Leukocyte Esterase,Urine Negative (Negative); Nitrite,Urine Negative (Negative); PH, Urine 5.5 (5.0-8.0); Protein,Urine Negative (Negative); Specific Gravity,Urine 1.007 (1.001-1.035); Urobilinogen,Urine <2.0 mg/dL (<2.0)
[2018-05-22 14:32] LABS: Amphetamine Screen,Urine Not Detected (NotDetected); Barbiturate Screen,Urine Not Detected (NotDetected); Benzodiazepines Screen,Urine Not Detected (NotDetected); Cocaine Screen,Urine Not Detected (NotDetected); Methadone Screen, Urine Not Detected (NotDetected); Opiate Screen,Urine Not Detected (NotDetected); Oxycodone Screen, Urine Not Detected (NotDetected); Phencyclidine Screen,Urine Not Detected (NotDetected); Tricyclic Antidepressant,Urine Not Detected (NotDetected); Urn Cannabinoid Scrn Detected (NotDetected)
[2018-05-22] MEDS: HEPARIN SOD,PORK IN 0.45% NACL 25,000 UNIT in 0.45% NACL 1 500ML.BAG IV SCH (17:24)
[2018-05-23] MEDS: NITROGLYCERIN OINT 1 INCH/GM PACKET TOPICAL SCH ×3 (02:19→12:31)
[2018-05-23] MEDS: PANTOPRAZOLE 40 MG TABLET PO SCH (05:06)
[2018-05-23] MEDS: METOPROLOL TARTRATE 12.5 MG TAB PO SCH (05:06)
[2018-05-23] MEDS: FUROSEMIDE 10 MG/ML 4 ML VIAL IV SCH ×2 (05:06→21:17)
[2018-05-23] MEDS ORDERED: ASPIRIN 325 MG TAB PO ONE (06:00)
[2018-05-23] MEDS ORDERED: ATORVASTATIN 80 MG TAB PO ONE (06:00)
[2018-05-23 06:22] LABS: Glucose,Whole Blood 117 mg/dL (75-99)
[2018-05-23] MEDS: IPRATROPIUM-ALBUTEROL 3 ML NEB INHALATION SCH ×3 (07:20→19:20)
[2018-05-23 07:53] LABS: Basophils # (A) 0.1 k/uL (0-0.2); Basophils % (A) 1 %; Eosinophils # (A) 0.2 k/uL (0-0.7); Eosinophils % (A) 2 %; HCT 47.9 % (39.0-53.0); HGB 15.8 gm/dL (13.0-17.5); Lymphocytes # (A) 2.2 k/uL (1.0-4.8); Lymphocytes % (A) 26 %; MCH 30.3 pg (25.0-35.0); MCV 91.8 fL (80.0-100.0); Mean Platelet Volume 7.3; Monocytes # (A) 0.5 k/uL (0-1.0); Monocytes % (A) 6 %; Neutrophils # (A) 5.3 k/uL (1.3-7.7); Neutrophils % (A) 63 %; Platelet Count 262 k/uL (150-450); RBC 5.21 m/uL (4.30-5.90); RDW 13.6 % (11.5-15.5); WBC 8.4 k/uL (3.8-10.6)
[2018-05-23 08:15] LABS: Calcium 9.3 mg/dL (8.4-10.2); Potassium 4.5 mmol/L (3.5-5.1)
[2018-05-23] MEDS ORDERED: fentaNYL (PF) 50 MCG/ML 2 ML AMP IVP ONE (10:12)
[2018-05-23] MEDS ORDERED: MIDAZOLAM 2 MG/2 ML VIAL IVP ONE (10:12)
[2018-05-23] MEDS ORDERED: IV FLUID CONTINUATION 1,000 ML IV ONE ×2 (10:13→13:34)
[2018-05-23] MEDS ORDERED: LIDOCAINE 1% INJ 10MG/ML (20 ML MDV) SQ ONE (10:16)
[2018-05-23] MEDS ORDERED: RX INFO: IV CONTRAST WAS GIVEN 1 EACH MISC MISCELLANE PRN ×2 (10:43→14:06)
--- NOTE | 2018-05-23 10:50 | P.CARDCATH ---
Date of Procedure: 05/23/18 Preoperative Diagnosis: Cardiomyopathy, CHF and non-STEMI Procedure(s) Performed: The same Description of Procedure: HISTORY: This is a 52-year-old gentleman who was admitted to the hospital with progressive shortness of breath and also evidence of abnormal troponin values. Findings were consistent with cardiomyopathy and CHF. A cardiac catheterization requested to rule out underlying ischemic heart disease. CONSENT:I have discussed the risks, benefits and alternative therapies for the above-mentioned procedure and for both sedation/analgesia as well as necessary blood product administration, if indicated, as they pertain to this patient. The patient has indicated understanding and acceptance of the risks and procedures discussed. PROCEDURE: Patient was brought to the lab in a fasting state. Patient was given some IV sedation. The right groin is infiltrated with lidocaine and right femoral artery was entered using Seldinger technique. A 6-Kiswahili catheter was left in place and selective coronary arteriography and left ventriculography was performed. Patient tolerated the procedure well. Femoral angiogram was performed and patient is waiting to have stent placement by Dr. Means.. No immediate complications were noted and patient was transferred to [facility] in a stable condition. He patient has a sheath in place. Conscious Sedation: Versed 1mg Fentanyl 50 g Duration 20minutes HEMODYNAMICS: The aortic pressure is about 120/70. Left ventricular end- diastolic pressure is about 16. No gradient across the aortic valve SELECTIVE CORONARY ARTERIOGRAPHY: LEFT MAIN: Long and free of any significant focal lesion THE LEFT ANTERIOR DESCENDING CORONARY ARTERY:. This is a fairly caliber vessel, denies to several small septal and diagonal branches. It wraps around the apex. Mild intimal plaque noted without any significant focal lesions THE LEFT CIRCUMFLEX AND IS CORONARY ARTERY:. This is a fairly caliber vessel with mild diffuse intimal plaque. Use rise good-sized OM branch. The circumflex and branches are free of significant focal occlusive disease THE RIGHT CORONARY ARTERY:. This is a moderate caliber vessel giving rise to good-sized PDA. The mid RCA has about 80-90% stenosis involving a long segment. LEFT VENTRICULOGRAPHY: This was not performed FINAL IMPRESSION: Critical lesion involving mid RCA. Both ischemic and nonischemic heart myopathy. Congestive heart failure PLAN: Stent placement of the RCA followed by maximal medical therapy PROGNOSIS:. Guarded
[2018-05-23] MEDS ORDERED: IOPAMIDOL-370 125ML BTL INJ ONE ×2 (11:00→14:03)
[2018-05-23] MEDS: HYDROcodone/APAP 5-325MG 1 EACH TAB PO PRN ×3 (11:18→21:14)
--- NOTE | 2018-05-23 11:52 | P.PN ---
Subjective -52 year-old admitted for shortness of breath and pulmonary edema although found to have ejection fraction of around 20%, patient has minimally elevated troponins and undergo cardiac catheterization tomorrow patient was started on IV Lasix. Ischemic Cardio- myopathy need to be ruled out with elevated troponin and on going on and off exertional chest pain. 05/23/2018 Patient underwent cardiac catheterization showed occlusion of RCA will undergo stenting discussed with regarding his poor ejection fraction possible necessity of life rest Constitutional: Denied any fatigue denied any fever. Cardio vascular: denied any palpitations Gastrointestinal denied any nausea vomiting Pulmonary: As mentioned in HPI Neurologic denied any new focal deficits Objective - Vital Signs Vital signs: Vital Signs Temp 97.0 F L 05/23/18 08:00 Pulse 36 L 05/23/18 08:00 Resp 16 05/23/18 08:00 BP 130/62 05/23/18 08:00 Pulse Ox 96 05/23/18 08:00 Intake & Output 05/22/18 05/23/18 05/23/18 18:59 06:59 18:59 Intake Total 1065.43 200 100 Output Total 1300 950 Balance -234.57 -750 100 Weight 80.9 kg Intake: IV 160 100 .9 160 Intake, IV Titration 307.43 Amount Heparin Sod,Pork in 0.45% 307.43 NaCl 25,000 unit In 0.45 % NaCl 1 500ml.bag @ 11.6 UNITS/KG/HR 19.99 mls/hr IV .Q24H [facility] Rx#: [id number] Oral 598 200 Output: Urine 1300 950 - Exam PHYSICAL EXAMINATION: GENERAL: The patient is alert and oriented x3, not in any acute distress. Well developed, well nourished. HEENT: Pupils are round and equally reacting to light. EOMI. No scleral icterus. No conjunctival pallor. Normocephalic, atraumatic. No pharyngeal erythema. No thyromegaly. CARDIOVASCULAR: S1 and S2 present. No murmurs, rubs, or gallops. Patient does have elevated JVD PULMONARY: Chest is clear to auscultation, no wheezing or crackles. ABDOMEN: Soft, nontender, nondistended, normoactive bowel sounds. No palpable organomegaly. MUSCULOSKELETAL: No joint swelling or deformity. EXTREMITIES: No cyanosis, clubbing, or no significant pedal edema may be minimal pitting pedal edema NEUROLOGICAL: Gross neurological examination did not reveal any focal deficits. SKIN: No rashes. - Labs CBC & Chem 7: 05/23/18 07:25 05/23/18 07:25 Labs: Abnormal Lab Results - Last 24 Hours (Table) 05/22/18 05/23/18 05/23/18 Range/Units 14:00 06:20 07:25 APTT (22.0-30.0) sec Creatinine 1.26 H (0.66-1.25) mg/dL Glucose 106 H (74-99) mg/dL POC Glucose (mg/dL) 117 H (75-99) mg/dL U Marijuana (THC) Screen Detected H (NotDetected) 05/23/18 Range/Units 07:25 APTT 48.3 H (22.0-30.0) sec Creatinine (0.66-1.25) mg/dL Glucose (74-99) mg/dL POC Glucose (mg/dL) (75-99) mg/dL U Marijuana (THC) Screen (NotDetected) Assessment and Plan Plan: Congestive heart failure systolic dysfunction and showed acute or chronic ischemic cardiomyopathy need to be ruled out patient was started on Lasix. Repeat basic metabolic profile tomorrow - non-ST elevation myocardial infarction, patient has stenosis of RCA will undergo stenting of RCA. -Mild acute renal failure: Secondary to diuretic therapy. -Hypertension -Hyperlipidemia -Rule out pulmonary embolism
[2018-05-23] MEDS: SODIUM CHLORIDE 0.9% 1,000 ML IV SCH (12:00)
--- NOTE | 2018-05-23 12:14 | P.PN ---
Subjective Progress Note Date: 05/23/18 Principal diagnosis: Chest pain with dyspnea on exertion This is a very pleasant 52-year-old gentleman who follows with Dr. Rhodes as his primary care physician. He has a history of hypertension and hyperlipidemia. He states his cholesterol was quite high many years ago and he took medicine for a while and then has since not followed up on that. He has a remote history of smoking. He denies any significant alcohol abuse. No previous pulmonary issues. Lately however for approximately 2 months now he has had progressive shortness of breath. It has been getting worse over the last couple of weeks. He has also been noticing some left-sided chest discomfort which she describes as a cramping sensation. He presented here to the emergency from the same. A CT angiogram was performed and ruled out pulmonary embolism. There is some minimal emphysema noted. An echocardiogram revealed severely impaired left ventricular systolic function with ejection fraction 20-25%. Troponin 0.066, 0.080, 0.065. LDL cholesterol 170. Creatinine 1.06. White count 7.7. Hemoglobin 14.7. He is seen today in consultation on the selective care unit. He is awake and alert in no acute distress. He's comfortable at rest. No current chest discomfort. He is maintaining good O2 saturations in the mid 90s on room air. He's been afebrile. Blood pressure stable. Currently bradycardic. He has been initiated on a heparin drip. He is currently on IV diuretics as well. The patient is seen again today 05/21/2018 in follow-up on the selective care unit. He is currently awake and alert in no acute distress. He denies any shortness of breath, cough or congestion. He is maintaining good O2 saturations in the 90s on room air. He's afebrile. White count 8.4. Hemoglobin 15.8. Creatinine 1.26. He did undergo cardiac catheterization this morning and was found to have a 80-90% blockage of the mid RCA. He is currently awaiting stent placement. Objective - Vital Signs Vital signs: Vital Signs Temp 97.0 F L 05/23/18 08:00 Pulse 36 L 05/23/18 08:00 Resp 16 05/23/18 08:00 BP 130/62 05/23/18 08:00 Pulse Ox 96 05/23/18 08:00 Intake & Output 05/22/18 05/23/18 05/23/18 18:59 06:59 18:59 Intake Total 1065.43 200 100 Output Total 1300 950 Balance -234.57 -750 100 Weight 80.9 kg Intake: IV 160 100 .9 160 Intake, IV Titration 307.43 Amount Heparin Sod,Pork in 0.45% 307.43 NaCl 25,000 unit In 0.45 % NaCl 1 500ml.bag @ 11.6 UNITS/KG/HR 19.99 mls/hr IV .Q24H [facility] Rx#: [id number] Oral 598 200 Output: Urine 1300 950 - Exam GENERAL EXAM: Alert, currently required to flat in bed fairly uncomfortable but in no apparent distress. HEAD: Normocephalic. EYES: Normal reaction of pupils, equal size. NOSE: Clear with pink turbinates. THROAT: No erythema or exudates. NECK: No masses, no JVD. CHEST: No chest wall deformity. LUNGS: Equal air entry with no crackles, wheeze, rhonchi or dullness. CVS: S1 and S2 normal with no audible murmur, regular rhythm. ABDOMEN: No hepatosplenomegaly, normal bowel sounds, no guarding or rigidity. SPINE: No scoliosis or deformity SKIN: No rashes CENTRAL NERVOUS SYSTEM: No focal deficits, tone is normal in all 4 extremities. EXTREMITIES: There is no peripheral edema. No clubbing, no cyanosis. Peripheral pulses are intact. - Labs CBC & Chem 7: 05/23/18 07:25 05/23/18 07:25 Labs: Abnormal Lab Results - Last 24 Hours (Table) 05/22/18 05/23/18 05/23/18 Range/Units 14:00 06:20 07:25 APTT (22.0-30.0) sec Creatinine 1.26 H (0.66-1.25) mg/dL Glucose 106 H (74-99) mg/dL POC Glucose (mg/dL) 117 H (75-99) mg/dL U Marijuana (THC) Screen Detected H (NotDetected) 05/23/18 Range/Units 07:25 APTT 48.3 H (22.0-30.0) sec Creatinine (0.66-1.25) mg/dL Glucose (74-99) mg/dL POC Glucose (mg/dL) (75-99) mg/dL U Marijuana (THC) Screen (NotDetected) Assessment and Plan Assessment: Impression: #1 Progressive dyspnea secondary to severe cardiomyopathy with ejection fraction 20-25%. Ischemic in nature. The patient did undergo cardiac catheterization this morning and was found to have a long mid RCA lesion of 80- 90%. Currently awaiting stent placement. #2 Troponin leak. #3 Hyperlipidemia. #4 Hypertension. #5 Mild pulmonary emphysema and a patient with a remote history of chronic tobacco dependence. #6 Gastroesophageal reflux disease. Plan: The patient was seen and evaluated by Dr. Hernandez. The patient is currently laying flat in bed. He is maintaining good O2 saturations in the 90s on room air. No pulmonary complaints. Awaiting stent placement. We'll continue to follow. I, the cosigning physician, performed a history & physical examination of the patient. Lungs sounds with faint crackles in the bilateral posterior bases. Maintaining good O2 saturations in the 90s on room air. I discussed the assessment and plan of care with my nurse practitioner, Kerry Snow. I attest to the above note as dictated by her.
[2018-05-23] MEDS: LOSARTAN 25 MG TAB PO SCH (12:42)
[2018-05-23] MEDS ORDERED: MIDAZOLAM 2 MG/2 ML VIAL IV ONE (13:30)
[2018-05-23] MEDS ORDERED: LIDOCAINE 1% (PF) 10MG/ML VIAL SQ ONE (13:32)
[2018-05-23] MEDS: NITROGLYCERIN 1000MCG/10ML SYRINGE INTRACORON ONE ×2 (13:36→13:52)
[2018-05-23] MEDS ORDERED: BIVALIRUDIN BOLUS 250 MG/50 ML IV ONE (13:37)
[2018-05-23] MEDS ORDERED: fentaNYL (PF) 50 MCG/ML 2 ML AMP IV ONE (13:37)
[2018-05-23] MEDS ORDERED: BIVALIRUDIN 250 MG in SODIUM CHLORIDE 0.9% 50 ML IV ONE (13:38)
[2018-05-23] MEDS ORDERED: CLOPIDOGREL 75 MG TAB PO ONE (14:02)
[2018-05-23] MEDS ORDERED: ZOLPIDEM 5 MG TAB PO PRN (14:06)
[2018-05-23] MEDS ORDERED: ATROPINE SULFATE 0.1 MG/ML 10ML SYRINGE IV PRN (14:06)
[2018-05-23] MEDS ORDERED: NITROGLYCERIN SL TABS 0.4 MG TAB SUBLINGUAL PRN (14:06)
[2018-05-23] MEDS ORDERED: SODIUM CHLORIDE 0.9% 1,000 ML IV SCH (14:15)
[2018-05-23] MEDS: HEPARIN SOD,PORK IN 0.45% NACL 25,000 UNIT in 0.45% NACL 1 500ML.BAG IV SCH (14:39)
[2018-05-23] MEDS: MAG HYDROX/AL HYDROX/SIMETH 30 ML CUP PO PRN (14:50)
--- NOTE | 2018-05-23 14:56 | LTR ---
DATE OF SERVICE; May 23, 2018 RE: Iglesia Rodriguez Dear Dr. Ahmadi. Mr. Iglesia Rodriguez was admitted to [facility] with acute non-ST elevation myocardial infarction as well as congestive heart failure. He underwent heart catheterization and that revealed critical disease involving the mid RCA. He underwent successful stenting of the mid RCA with good angiographic results. Thank you for allowing us to participate in his care and please do not hesitate to call if you have any question or concern. Sincerely, MD ANTHONY Truong / JOSELINE: [id number] /
[2018-05-23 15:17] VITALS: BMI 27.1
[2018-05-23] MEDS ORDERED: MORPHINE SULFATE 2 MG/ML SYRINGE IVP ONE (16:45)
--- NOTE | 2018-05-23 16:47 | PTCA ---
PERCUTANEOUSTRANS CORORONARY ANGIOGRAPHY DATE OF SERVICE: 05/23/2018 PERFORMING PHYSICIAN: Sandro Mehta MD, cover marker. PROCEDURE PERFORMED: Successful stenting of the mid right coronary artery using a 2.75 x 18 mm Xience drug- eluting stent which was post dilated using a 3 mm noncompliant balloon with good angiographic results and reduction of stenosis from 90% to 0% and without any complication. INDICATION: This is a pleasant 52-year-old gentleman who presented to the hospital with chest discomfort and was ruled in for acute [id number] myocardial infarction. The patient's troponin came in to be elevated. He also was found to have cardiomyopathy. In view of that, a heart catheterization was recommended. The patient underwent heart catheterization by Dr. Woody and was found to have critical disease involving the mid RCA. Because of that, PCI of the RCA was advised. APPROACH: Right common femoral artery. COMPLICATIONS: None. LEVEL OF SEDATION: Moderate with sedation length of 30 minutes. PROCEDURE DESCRIPTION: Please refer to the diagnostic heart catheterization that was performed by Dr. Woody. Anticoagulation was initiated using Angiomax. Subsequently I engaged the RCA using a JR4 guide. I wired the RCA using a Whisper wire, and the wire was positioned in the PDA branch of the RCA. After that I did balloon angioplasty using a 2.5 x 12 mm balloon. I tried to advance a 2.75 x 18 mm stent, but the stent would not cross the proximal RCA because of the tortuous proximal RCA. I did wire the RCA using a alexsandra wire which was a run-through wire. After that I was able to advance the stent proximal RCA, where the stent was positioned under fluoroscopic guidance and deployed under 12 atmospheres for 20 seconds. I post dilated the stent using 3 mm NC balloon with the following angiogram showing good angiographic results and the procedure was completed without any complication. POST-PROCEDURE MANAGEMENT: 1. Dual anti-platelet therapy. 2. Risk factor modifications. 3. Follow up with the patient. MMODL / IJN: [id number] /
[2018-05-23] MEDS: CARVEDILOL 3.125 MG TAB PO SCH (18:01)
[2018-05-24] MEDS: SODIUM CHLORIDE 0.9% 1,000 ML IV SCH ×2 (01:26→09:08)
[2018-05-24 06:01] LABS: Basophils % (A) 0 %; Eosinophils # (A) 0.1 k/uL (0-0.7); Eosinophils % (A) 1 %; HCT 48.2 % (39.0-53.0); HGB 15.9 gm/dL (13.0-17.5); Lymphocytes # (A) 1.4 k/uL (1.0-4.8); Lymphocytes % (A) 13 %; MCH 30.7 pg (25.0-35.0); MCHC 33.1 g/dL (31.0-37.0); MCV 92.8 fL (80.0-100.0); Mean Platelet Volume 7.2; Monocytes # (A) 0.4 k/uL (0-1.0); Monocytes % (A) 4 %; Neutrophils # (A) 8.6 k/uL (1.3-7.7); Neutrophils % (A) 81 %; Platelet Count 254 k/uL (150-450); RBC 5.19 m/uL (4.30-5.90); RDW 13.5 % (11.5-15.5); WBC 10.7 k/uL (3.8-10.6)
[2018-05-24 06:24] LABS: Calcium 9.6 mg/dL (8.4-10.2); Potassium 4.1 mmol/L (3.5-5.1)
[2018-05-24] MEDS: PANTOPRAZOLE 40 MG TABLET PO SCH (06:38)
[2018-05-24] MEDS: CARVEDILOL 3.125 MG TAB PO SCH ×2 (06:38→17:22)
[2018-05-24] MEDS: IPRATROPIUM-ALBUTEROL 3 ML NEB INHALATION SCH ×3 (07:36→19:40)
[2018-05-24] MEDS ORDERED: ASPIRIN 325 MG TAB PO SCH (09:00)
[2018-05-24] MEDS: ASPIRIN 81 MG PO SCH (09:04)
[2018-05-24] MEDS: ATORVASTATIN 80 MG TAB PO SCH (09:04)
[2018-05-24] MEDS: CLOPIDOGREL 75 MG TAB PO SCH (09:04)
[2018-05-24] MEDS: LOSARTAN 25 MG TAB PO SCH (09:05)
[2018-05-24] MEDS: FUROSEMIDE 10 MG/ML 4 ML VIAL IV SCH (09:05)
[2018-05-24] MEDS: MAG HYDROX/AL HYDROX/SIMETH 30 ML CUP PO PRN (09:13)
--- NOTE | 2018-05-24 10:32 | P.PN ---
Subjective Patient is doing well. He is able to lie flat in bed comfortably at this time he has no shortness of breath no orthopnea PND He underwent coronary angiography yesterday Coronary angiography revealed mid coronary artery stenosis of 90% and he underwent successful stenting with a drug-eluting stent However the 2-D echo shows EF 20-25%, increased LV mass, mild RV enlargement, LA severely dilated no significant valvular abnormalities Twelve-lead ECG shows sinus rhythm with frequent PVCs from the RVOT septum. Transition in V3 On examination his blood pressures 112/66. His mercury pulse rate in the 60s irregular Breath sounds are reduced bilaterally no rhonchi no crackles Heart sounds S1 and S2 are normal no murmurs or gallop or rub rhythm is irregular Abdomen soft nontender Extremities are warm no edema Access sites have healed well Impression Acute on chronic congestive heart rate is symptoms for the last 3-4 months On detailed questioning the patient had a bout of gastroenteritis with abdominal pain fever and chills about 4 months back but this episode lasted for about 3 days. 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 Rico as an outpatient Objective - Vital Signs Vital signs: Vital Signs Temp 98 F 05/23/18 20:00 Pulse 68 05/24/18 08:00 Resp 16 05/24/18 08:00 BP 112/66 05/24/18 08:00 Pulse Ox 96 05/24/18 04:00 Intake & Output 05/23/18 05/24/18 05/24/18 18:59 06:59 18:59 Intake Total 201 118 Output Total 400 975 Balance -199 -975 118 Weight 80.9 kg 80.2 kg Intake: IV 201 Oral 118 Output: Urine 400 975 Other: Voiding Method Urinal # Voids 2 - Labs CBC & Chem 7: 05/24/18 05:44 05/24/18 05:44 Labs: Abnormal Lab Results - Last 24 Hours (Table) 05/24/18 05/24/18 Range/Units 05:44 05:44 WBC 10.7 H (3.8-10.6) k/uL Neutrophils # 8.6 H (1.3-7.7) k/uL Glucose 152 H (74-99) mg/dL
[2018-05-24 11:43] LABS: Cholesterol 262 mg/dL (<200); HDL Cholesterol 58 mg/dL (40-60); LDL Cholesterol,Calculated 184 mg/dL (0-99); Triglycerides 102 mg/dL (<150)
--- NOTE | 2018-05-24 12:03 | P.PN ---
Subjective -52 year-old admitted for shortness of breath and pulmonary edema although found to have ejection fraction of around 20%, patient has minimally elevated troponins and undergo cardiac catheterization tomorrow patient was started on IV Lasix. Ischemic Cardio- myopathy need to be ruled out with elevated troponin and on going on and off exertional chest pain. 05/23/2018 Patient underwent cardiac catheterization showed occlusion of RCA will undergo stenting discussed with regarding his poor ejection fraction possible necessity of life rest 05/24/2018 Patient is clinically doing well overnight events and patient the will be discharged home tomorrow patient was switched to oral Lasix patient doesn't have any shortness of breath today. Constitutional: Denied any fatigue denied any fever. Cardio vascular: denied any palpitations Gastrointestinal denied any nausea vomiting Pulmonary: As mentioned in HPI Neurologic denied any new focal deficits Objective - Vital Signs Vital signs: Vital Signs Temp 98 F 05/23/18 20:00 Pulse 73 05/24/18 11:49 Resp 14 05/24/18 11:47 BP 106/58 05/24/18 11:47 Pulse Ox 95 05/24/18 11:47 Intake & Output 05/23/18 05/24/18 05/24/18 18:59 06:59 18:59 Intake Total 201 118 Output Total 400 975 Balance -199 -975 118 Weight 80.9 kg 80.2 kg Intake: IV 201 Oral 118 Output: Urine 400 975 Other: Voiding Method Urinal # Voids 2 - Exam PHYSICAL EXAMINATION: GENERAL: The patient is alert and oriented x3, not in any acute distress. Well developed, well nourished. HEENT: Pupils are round and equally reacting to light. EOMI. No scleral icterus. No conjunctival pallor. Normocephalic, atraumatic. No pharyngeal erythema. No thyromegaly. CARDIOVASCULAR: S1 and S2 present. No murmurs, rubs, or gallops. No JVD PULMONARY: Chest is clear to auscultation, no wheezing or crackles. ABDOMEN: Soft, nontender, nondistended, normoactive bowel sounds. No palpable organomegaly. MUSCULOSKELETAL: No joint swelling or deformity. EXTREMITIES: No cyanosis, clubbing, or no pedal edema NEUROLOGICAL: Gross neurological examination did not reveal any focal deficits. SKIN: No rashes. - Labs CBC & Chem 7: 05/24/18 05:44 05/24/18 05:44 Labs: Abnormal Lab Results - Last 24 Hours (Table) 05/24/18 05/24/18 05/24/18 Range/Units 05:44 05:44 05:44 WBC 10.7 H (3.8-10.6) k/uL Neutrophils # 8.6 H (1.3-7.7) k/uL Glucose 152 H (74-99) mg/dL Cholesterol 262 H (<200) mg/dL LDL Cholesterol, Calc 184 H (0-99) mg/dL Assessment and Plan Plan: Congestive heart failure systolic dysfunction and showed acute or chronic ischemic cardiomyopathy need to be ruled out patient was switched to oral Lasix. Repeat basic metabolic profile tomorrow - non-ST elevation myocardial infarction, patient has stenosis of RCA will undergo stenting of RCA. -Mild acute renal failure: Secondary to diuretic therapy. Presently stable. Expected to improve -Hypertension -Hyperlipidemia -Rule out pulmonary embolism
[2018-05-24] MEDS: SPIRONOLACTONE 25 MG TAB PO SCH (12:15)
--- NOTE | 2018-05-24 12:35 | P.PN ---
Subjective Progress Note Date: 05/24/18 Principal diagnosis: Chest pain with dyspnea on exertion This is a very pleasant 52-year-old gentleman who follows with Dr. Rhodes as his primary care physician. He has a history of hypertension and hyperlipidemia. He states his cholesterol was quite high many years ago and he took medicine for a while and then has since not followed up on that. He has a remote history of smoking. He denies any significant alcohol abuse. No previous pulmonary issues. Lately however for approximately 2 months now he has had progressive shortness of breath. It has been getting worse over the last couple of weeks. He has also been noticing some left-sided chest discomfort which she describes as a cramping sensation. He presented here to the emergency from the same. A CT angiogram was performed and ruled out pulmonary embolism. There is some minimal emphysema noted. An echocardiogram revealed severely impaired left ventricular systolic function with ejection fraction 20-25%. Troponin 0.066, 0.080, 0.065. LDL cholesterol 170. Creatinine 1.06. White count 7.7. Hemoglobin 14.7. He is seen today in consultation on the selective care unit. He is awake and alert in no acute distress. He's comfortable at rest. No current chest discomfort. He is maintaining good O2 saturations in the mid 90s on room air. He's been afebrile. Blood pressure stable. Currently bradycardic. He has been initiated on a heparin drip. He is currently on IV diuretics as well. The patient is seen again today 05/23/2018 in follow-up on the selective care unit. He is currently awake and alert in no acute distress. He denies any shortness of breath, cough or congestion. He is maintaining good O2 saturations in the 90s on room air. He's afebrile. White count 8.4. Hemoglobin 15.8. Creatinine 1.26. He did undergo cardiac catheterization this morning and was found to have a 80-90% blockage of the mid RCA. He is currently awaiting stent placement. The patient is seen again today 05/24/2018 in follow-up on the selective care unit. He is awake and alert in no acute distress. No further chest discomfort , palpitations lightheadedness or dizziness. No shortness of breath, cough or congestion. His heparin has been discontinued. He's been transitioned to oral Lasix. He continues to maintain good O2 saturations in the 90s on room air. He is hemodynamically stable. Objective - Vital Signs Vital signs: Vital Signs Temp 98 F 05/23/18 20:00 Pulse 73 05/24/18 11:49 Resp 14 05/24/18 11:47 BP 106/58 05/24/18 11:47 Pulse Ox 95 05/24/18 11:47 Intake & Output 05/23/18 05/24/18 05/24/18 18:59 06:59 18:59 Intake Total 201 118 Output Total 400 975 Balance -199 -975 118 Weight 80.9 kg 80.2 kg Intake: IV 201 Oral 118 Output: Urine 400 975 Other: Voiding Method Urinal # Voids 2 - Exam GENERAL EXAM: Alert, resting comfortably and in no apparent distress. HEAD: Normocephalic. EYES: Normal reaction of pupils, equal size. NOSE: Clear with pink turbinates. THROAT: No erythema or exudates. NECK: No masses, no JVD. CHEST: No chest wall deformity. LUNGS: Equal air entry with no crackles, wheeze, rhonchi or dullness. CVS: S1 and S2 normal with no audible murmur, regular rhythm. ABDOMEN: No hepatosplenomegaly, normal bowel sounds, no guarding or rigidity. SPINE: No scoliosis or deformity SKIN: No rashes CENTRAL NERVOUS SYSTEM: No focal deficits, tone is normal in all 4 extremities. EXTREMITIES: There is no peripheral edema. No clubbing, no cyanosis. Peripheral pulses are intact. - Labs CBC & Chem 7: 05/24/18 05:44 05/24/18 05:44 Labs: Abnormal Lab Results - Last 24 Hours (Table) 05/24/18 05/24/18 05/24/18 Range/Units 05:44 05:44 05:44 WBC 10.7 H (3.8-10.6) k/uL Neutrophils # 8.6 H (1.3-7.7) k/uL Glucose 152 H (74-99) mg/dL Cholesterol 262 H (<200) mg/dL LDL Cholesterol, Calc 184 H (0-99) mg/dL Assessment and Plan Assessment: Impression: #1 Progressive dyspnea secondary to severe cardiomyopathy with ejection fraction 20-25%. Ischemic in nature. The patient did undergo cardiac catheterization on 05/23/2018 and was found to have a long mid RCA lesion of 80- 90%. He did undergo successful stenting with reduction to 0% stenosis. #2 Troponin leak. #3 Hyperlipidemia. #4 Hypertension. #5 Mild pulmonary emphysema and a patient with a remote history of chronic tobacco dependence. #6 Gastroesophageal reflux disease. Plan: The patient was seen and evaluated by Dr. Hernandez. The patient is stable from the pulmonary standpoint. He is maintaining good O2 saturations in the 90s on room air. The plan is for probable discharge in the a.m. per cardiology. We'll continue to follow. I, the cosigning physician, performed a history & physical examination of the patient. Lungs sounds clear. Maintaining good O2 saturations in the 90s on room air. I discussed the assessment and plan of care with my nurse practitioner, Kerry Snow. I attest to the above note as dictated by her.
[2018-05-25] MEDS: PANTOPRAZOLE 40 MG TABLET PO SCH (06:22)
[2018-05-25] MEDS: CARVEDILOL 3.125 MG TAB PO SCH ×2 (06:22→17:30)
[2018-05-25 06:50] LABS: Basophils % (A) 1 %; Eosinophils # (A) 0.2 k/uL (0-0.7); Eosinophils % (A) 3 %; HCT 46.8 % (39.0-53.0); HGB 15.6 gm/dL (13.0-17.5); Lymphocytes # (A) 1.9 k/uL (1.0-4.8); Lymphocytes % (A) 23 %; MCH 30.4 pg (25.0-35.0); MCHC 33.4 g/dL (31.0-37.0); MCV 91.2 fL (80.0-100.0); Mean Platelet Volume 7.7; Monocytes # (A) 0.6 k/uL (0-1.0); Monocytes % (A) 7 %; Neutrophils # (A) 5.3 k/uL (1.3-7.7); Neutrophils % (A) 65 %; Platelet Count 252 k/uL (150-450); RBC 5.13 m/uL (4.30-5.90); RDW 13.4 % (11.5-15.5); WBC 8.2 k/uL (3.8-10.6)
[2018-05-25 07:01] LABS: Calcium 9.3 mg/dL (8.4-10.2); Potassium 4.6 mmol/L (3.5-5.1)
[2018-05-25] MEDS ORDERED: FUROSEMIDE 40 MG TAB PO SCH (09:00)
[2018-05-25] MEDS: ASPIRIN 81 MG PO SCH (09:13)
[2018-05-25] MEDS: ATORVASTATIN 80 MG TAB PO SCH (09:13)
[2018-05-25] MEDS: LOSARTAN 25 MG TAB PO SCH (09:13)
[2018-05-25] MEDS: CLOPIDOGREL 75 MG TAB PO SCH (09:13)
[2018-05-25] MEDS: SPIRONOLACTONE 25 MG TAB PO SCH (09:13)
[2018-05-25] MEDS: IPRATROPIUM-ALBUTEROL 3 ML NEB INHALATION SCH ×2 (09:15→12:10)
--- NOTE | 2018-05-25 11:30 | P.PN ---
Subjective Progress Note Date: 05/25/18 Principal diagnosis: Chest pain with dyspnea on exertion This is a very pleasant 52-year-old gentleman who follows with Dr. Rhodes as his primary care physician. He has a history of hypertension and hyperlipidemia. He states his cholesterol was quite high many years ago and he took medicine for a while and then has since not followed up on that. He has a remote history of smoking. He denies any significant alcohol abuse. No previous pulmonary issues. Lately however for approximately 2 months now he has had progressive shortness of breath. It has been getting worse over the last couple of weeks. He has also been noticing some left-sided chest discomfort which she describes as a cramping sensation. He presented here to the emergency from the same. A CT angiogram was performed and ruled out pulmonary embolism. There is some minimal emphysema noted. An echocardiogram revealed severely impaired left ventricular systolic function with ejection fraction 20-25%. Troponin 0.066, 0.080, 0.065. LDL cholesterol 170. Creatinine 1.06. White count 7.7. Hemoglobin 14.7. He is seen today in consultation on the selective care unit. He is awake and alert in no acute distress. He's comfortable at rest. No current chest discomfort. He is maintaining good O2 saturations in the mid 90s on room air. He's been afebrile. Blood pressure stable. Currently bradycardic. He has been initiated on a heparin drip. He is currently on IV diuretics as well. The patient is seen again today 05/23/2018 in follow-up on the selective care unit. He is currently awake and alert in no acute distress. He denies any shortness of breath, cough or congestion. He is maintaining good O2 saturations in the 90s on room air. He's afebrile. White count 8.4. Hemoglobin 15.8. Creatinine 1.26. He did undergo cardiac catheterization this morning and was found to have a 80-90% blockage of the mid RCA. He is currently awaiting stent placement. The patient is seen again today 05/24/2018 in follow-up on the selective care unit. He is awake and alert in no acute distress. No further chest discomfort , palpitations lightheadedness or dizziness. No shortness of breath, cough or congestion. His heparin has been discontinued. He's been transitioned to oral Lasix. He continues to maintain good O2 saturations in the 90s on room air. He is hemodynamically stable. The patient is seen again today 05/25/2018 in follow-up on the selective care unit. He is currently sitting up in a chair at the bedside. He is awake and alert in no acute distress. No further chest discomfort. No shortness of breath. Continues to maintain good O2 saturations in the upper 90s on room air. He's been afebrile. Hemodynamically stable. White count 8.2. Hemoglobin 15.6. Creatinine 1.31. He is quite anxious to go home. Objective - Vital Signs Vital signs: Vital Signs Temp 97 F L 05/25/18 08:00 Pulse 68 05/25/18 08:00 Resp 18 05/25/18 08:00 BP 120/73 05/25/18 08:00 Pulse Ox 97 05/25/18 08:00 Intake & Output 05/24/18 05/25/18 05/25/18 18:59 06:59 18:59 Intake Total 416 540 200 Balance 416 540 200 Weight 80.5 kg Intake: Oral 416 540 200 Other: Voiding Method Toilet Urinal # Voids 2 1 - Exam GENERAL EXAM: Alert, up ambulating in the hallway and in no apparent distress. HEAD: Normocephalic. EYES: Normal reaction of pupils, equal size. NOSE: Clear with pink turbinates. THROAT: No erythema or exudates. NECK: No masses, no JVD. CHEST: No chest wall deformity. LUNGS: Equal air entry with no crackles, wheeze, rhonchi or dullness. CVS: S1 and S2 normal with no audible murmur, regular rhythm. ABDOMEN: No hepatosplenomegaly, normal bowel sounds, no guarding or rigidity. SPINE: No scoliosis or deformity SKIN: No rashes CENTRAL NERVOUS SYSTEM: No focal deficits, tone is normal in all 4 extremities. EXTREMITIES: There is no peripheral edema. No clubbing, no cyanosis. Peripheral pulses are intact. - Labs CBC & Chem 7: 05/25/18 06:29 05/25/18 06:29 Labs: Abnormal Lab Results - Last 24 Hours (Table) 05/24/18 05/25/18 Range/Units 05:44 06:29 BUN 29 H (9-20) mg/dL Creatinine 1.31 H (0.66-1.25) mg/dL Glucose 106 H (74-99) mg/dL Cholesterol 262 H (<200) mg/dL LDL Cholesterol, Calc 184 H (0-99) mg/dL Assessment and Plan Assessment: Impression: #1 Progressive dyspnea secondary to severe cardiomyopathy with ejection fraction 20-25%. Ischemic along with nonischemic features due to the global hypokinesia. The patient did undergo cardiac catheterization on 05/23/2018 and was found to have a long mid RCA lesion of 80-90%. He did undergo successful stenting with reduction to 0% stenosis. #2 Troponin leak. #3 Hyperlipidemia. #4 Hypertension. #5 Mild pulmonary emphysema and a patient with a remote history of chronic tobacco dependence. #6 Gastroesophageal reflux disease. Plan: The patient was seen and evaluated by Dr. Hernandez. The patient is stable from the pulmonary standpoint. He is maintaining good O2 saturations in the 90s on room air. Home once cleared by cardiology. A life vest will be placed. We'll follow on as-needed basis. I, the cosigning physician, performed a history & physical examination of the patient. Lungs sounds clear. Maintaining good O2 saturations in the 90s on room air. I discussed the assessment and plan of care with my nurse practitioner, Kerry Snow. I attest to the above note as dictated by her.
--- NOTE | 2018-05-25 14:00 | P.DS ---
Providers Date of admission: 05/22/18 12:20 Attending physician: Shaista Amado Consults: 05/21/18 18:30 Consult Physician Urgent Consulting Provider: Sandro Mehta Consult Reason/Comments: ua Do you want consulting provider notified?: Yes 05/21/18 20:54 Consult Physician Routine Consulting Provider: Joshua Hernandez Consult Reason/Comments: copd?? Do you want consulting provider notified?: Yes 05/23/18 14:07 Consult Physician Routine Consulting Provider: [facility] Consult Reason/Comments: Post Interventional patient Do you want consulting provider notified?: Already Contacted Primary care physician: Fausto [facility] Course: -52 year-old admitted for shortness of breath and pulmonary edema although found to have ejection fraction of around 20%, patient has minimally elevated troponins and undergo cardiac catheterization tomorrow patient was started on IV Lasix. Ischemic Cardio- myopathy need to be ruled out with elevated troponin and on going on and off exertional chest pain. 05/23/2018 Patient underwent cardiac catheterization showed occlusion of RCA will undergo stenting discussed with regarding his poor ejection fraction possible necessity of life rest 05/24/2018 Patient is clinically doing well overnight events and patient the will be discharged home tomorrow patient was switched to oral Lasix patient doesn't have any shortness of breath today. 05/25/2018 Patient will be discharged today after he gets his life rest. Discharge medication reconciliation will be done by cardiology PHYSICAL EXAMINATION: GENERAL: The patient is alert and oriented x3, not in any acute distress. Well developed, well nourished. HEENT: Pupils are round and equally reacting to light. EOMI. No scleral icterus. No conjunctival pallor. Normocephalic, atraumatic. No pharyngeal erythema. No thyromegaly. CARDIOVASCULAR: S1 and S2 present. No murmurs, rubs, or gallops. No JVD PULMONARY: Chest is clear to auscultation, no wheezing or crackles. ABDOMEN: Soft, nontender, nondistended, normoactive bowel sounds. No palpable organomegaly. MUSCULOSKELETAL: No joint swelling or deformity. EXTREMITIES: No cyanosis, clubbing, or no pedal edema NEUROLOGICAL: Gross neurological examination did not reveal any focal deficits. SKIN: No rashes. Assessment and Plan Plan: Congestive heart failure systolic dysfunction possible chronic systolic dysfunction with acute exacerbation. Patient may have competent of ischemic and nonischemic any myopathy and patient is being discharged on Lasix and probably will need FERNANDO inhibitor once his creatinine stabilizes. Patient will be discharged on March antiplatelet therapy and a statin. Since patient's EF is around 20% patient will need a LifeVest before discharge - non-ST elevation myocardial infarction, patient has stenosis of RCA will undergo stenting of RCA. -Mild acute renal failure: Secondary to diuretic therapy. Presently stable. Expected to improve -Hypertension -Hyperlipidemia -Ruled out pulmonary embolism Plan - Discharge Summary Discharge Rx Participant: No New Discharge Prescriptions: No Action Omeprazole Magnesium [PriLOSEC OTC] 20 mg PO DAILY Discharge Medication List Omeprazole Magnesium [PriLOSEC OTC] 20 mg PO DAILY 05/21/18 [History] Follow up Appointment(s)/Referral(s): Rylan Denson MD [STAFF PHYSICIAN] - 2 Weeks Fausto Rhodes III, MD [Primary Care Provider] - 05/30/18 9:00 am Patient Instructions/Handouts: *Surgery [facility] - After Heart Catheterization - [employer] Instructions, Left Heart Catheterization (DC), Heart Healthy Diet (DC) Discharge Disposition: HOME SELF-CARE
--- NOTE | 2018-05-25 14:15 | P.PN ---
Subjective Progress Note Date: 05/25/18 This a pleasant 52-year-old gentleman who initially presented to the emergency department with shortness of breath. He underwent coronary angiography which revealed mid RCA stenosis of 90% and underwent successful stenting by Dr. Means. 2-D echo with Doppler showed ejection fraction of 20-25%, increased LV mass, mild RV enlargement, L a severely dilated with no significant valvular abnormalities. Twelve-lead EKG shows sinus rhythm with frequent PVCs. Patient has been initiated on optimized medical therapy with aspirin 81 mg by mouth daily, atorvastatin 80 mg by mouth daily, carvedilol 3.125 mg by mouth twice a day, Plavix 75 mg by mouth daily, Lasix 40 mg by mouth daily, losartan 25 mg by mouth daily and Aldactone 25 mg by mouth daily. She does have renal failure and Aldactone 25 mg daily. His vital signs are stable. On examination, he is sitting up at the site of the bed. He's been up ambulatory without difficulties. He denies shortness of breath or chest discomfort. Objective - Vital Signs Vital signs: Vital Signs Temp 97 F L 05/25/18 08:00 Pulse 68 05/25/18 08:00 Resp 18 05/25/18 08:00 BP 120/73 05/25/18 08:00 Pulse Ox 97 05/25/18 08:00 Intake & Output 05/24/18 05/25/18 05/25/18 18:59 06:59 18:59 Intake Total 416 540 400 Output Total 600 Balance 416 540 -200 Weight 80.5 kg Intake: Oral 416 540 400 Output: Urine 600 Other: Voiding Method Toilet Urinal # Voids 2 1 - Exam PHYSICAL EXAMINATION: HEENT: [Head is atraumatic, normocephalic. Pupils equal, round. Neck is supple. There is no elevated jugular venous pressure.] HEART EXAMINATION: [Heart sounds regular, S1 and S2 normal. No murmur or gallop heard.] CHEST EXAMINATION:[ Lungs are clear to auscultation and precussion. No chest wall tenderness is noted on palpation or with deep breathing.] ABDOMEN: [ Soft, nontender. Bowel sounds are heard. No organomegaly noted]. EXTREMITIES:[ 2+ peripheral pulses with no evidence of peripheral edema and no calf tenderness noted]. NEUROLOGIC [patient is awake, alert and oriented x3.] . 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 We will obtain a BMP in 1 week. Awaiting LifeVest prior to discharge. He will follow up in the office with Dr. Denson as an outpatient. CORE FILER note has been reviewed, I agree with a documented findings and plan of care. Patient was seen and examined.
[2018-05-25 16:12] VITALS: BP 132/74; PULSE 52; RESP 17; TEMP 97.6
[2018-05-26] MEDS ORDERED: SACUBITRIL/VALSARTAN 24 MG-26 MG TABLET PO SCH (09:00)
== END 2018-05-25 19:19 | disposition home or self-care (01) | DRG 246 ==
LOC: EC 15:02 → 6SEL 18:30 → OBSVTOIN 05-22 12:20
PROVIDERS: ADMIT Hospitalist; ATTEND Hospitalist
PROC: 4A023N7 Measurement of Cardiac Sampling and Pressure, Left Heart, Percutaneous Approach (ICD-10-PCS; 2018-05-23)
PROC: B2151ZZ Fluoroscopy of Left Heart using Low Osmolar Contrast (ICD-10-PCS; 2018-05-23)
PROC: B2111ZZ Fluoroscopy of Multiple Coronary Arteries using Low Osmolar Contrast (ICD-10-PCS; 2018-05-23)
PROC: 027034Z Dilation of Coronary Artery, One Artery with Drug-eluting Intraluminal Device, Percutaneous Approach (ICD-10-PCS; principal; 2018-05-23 10:00)
DX: I21.4 Non-ST elevation (NSTEMI) myocardial infarction (principal); I50.23 Acute on chronic systolic (congestive) heart failure; I42.9 Cardiomyopathy, unspecified; N17.9 Acute kidney failure, unspecified; E78.5 Hyperlipidemia, unspecified; F17.210 Nicotine dependence, cigarettes, uncomplicated; I11.0 Hypertensive heart disease with heart failure; I25.110 Atherosclerotic heart disease of native coronary artery with unstable angina pectoris; I49.3 Ventricular premature depolarization; J43.9 Emphysema, unspecified; K21.9 Gastro-esophageal reflux disease without esophagitis; T50.2X5A Adverse effect of carbonic-anhydrase inhibitors, benzothiadiazides and other diuretics, initial encounter; Z79.02 Long term (current) use of antithrombotics/antiplatelets; Z79.82 Long term (current) use of aspirin; Z82.49 Family history of ischemic heart disease and other diseases of the circulatory system; Z95.5 Presence of coronary angioplasty implant and graft
CPT/HCPCS: 36415; 71045; 71275; 80048; 80053; 80061; 80306; 81003; 82550; 82553; 83735; 83880; 84484; 85025; 85379; 85610; 85730; 93005; 93306; 93458; 94640; 94760; 96365; 96376; 99291